=== PATIENT | female | born 1990 | race Two or more races ===

== ENCOUNTER 2019-08-01 18:16 | Emergency (ER) | payer SELFPAY ==
[~2019-08-01] VITALS: Ht 165.1 cm; Wt 61.7 kg
--- NOTE | 2019-08-01 18:20 | NUR ---
DR ALFONSO AT BEDSIDE
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
[2019-08-01] MEDS ORDERED: SILVER SULFADIAZINE CREAM 25 GM TUBE ONE (18:26)
[2019-08-01] MEDS ORDERED: ACETAMINOPHEN 325 MG TABLET ONE (18:26)
[2019-08-01] MEDS ORDERED: LET SOLN TOPICAL 8 ML UDC TP ONE ×2 (18:26→18:30)
[2019-08-01] MEDS ORDERED: ACETAMINOPHEN 325 MG TABLET PO ONE (18:30)
[2019-08-01] MEDS ORDERED: SILVER SULFADIAZINE CREAM 25 GM TUBE TP ONE (18:30)
[2019-08-01] MEDS ORDERED: IV NS 0.9% 1,000 ML BAG IV ONE (18:30)
[2019-08-01] MEDS ORDERED: TDAP [DIPH/PERTUSSIS/TET] 0.5 ML VIAL IM ONE ×2 (19:13→19:30)
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
--- NOTE | 2019-08-01 19:49 | NUR ---
Received patient with severe pain. For application of medication to the affected part. Applied medication as ordered. Per patient, she wanted it wrapped. Wrapped R hand with Kerlix. Will continue to monitor accordingly.
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
[2019-08-01 20:21] VITALS: BP 110/73
== END 2019-08-01 20:22 | disposition home or self-care (01) ==
LOC: ER 18:18
DX: O9A.213 Injury, poisoning and certain other consequences of external causes complicating pregnancy, third trimester (principal); T23.151A Burn of first degree of right palm, initial encounter; Z3A.28 28 weeks gestation of pregnancy; X15.8XXA Contact with other hot household appliances, initial encounter; Y93.89 Activity, other specified; Y92.89 Other specified places as the place of occurrence of the external cause; Y99.8 Other external cause status
CPT/HCPCS: 16020; 90471; 90715; 99284; J7030